=== PATIENT | female | born 1980 | race Caucasian/White ===

== ENCOUNTER 2020-09-17 13:30 | Inpatient (IN) | payer OTHER, SELFPAY ==
[~2020-09-17] VITALS: Ht 157.5 cm; Wt 99.8 kg
[~2020-09-17 13:30] MED LIST: FERR325E14 PO; PREN-385 PO
[2020-09-17] MEDS ORDERED: LABE100T8 PO (14:17)
[2020-09-17] MEDS ORDERED: TERBUTALINE 1 MG/ML VIAL SUBQ SCH (14:20)
--- NOTE | 2020-09-17 14:54 | NUR ---
PATIENT HAS BEEN SCREENED AND CATEGORIZED LOW NUTRITION RISK. PATIENT WILL BE SEEN WITHIN 7 DAYS OF ADMISSION. 09/24/20 GLENN FRANKLIN MBA, RD
[2020-09-17 15:38] VITALS: BP 121/65
[2020-09-17] MEDS ORDERED: BETAMETH ACET/BETAMETH NA PH 30 MG/5 ML VIAL IM ONE (17:05)
[2020-09-17] MEDS: BETAMETH ACET/BETAMETH NA PH 30 MG/5 ML VIAL IM SCH (17:10)
[2020-09-17] MEDS: LABETALOL 100 MG TAB PO SCH (21:04)
[2020-09-17] MEDS: TERBUTALINE 2.5 MG TAB PO SCH (21:05)
[2020-09-18] MEDS: LACTATED RINGERS 1,000 ML IV SCH ×3 (00:24→17:05)
[2020-09-18] MEDS: TERBUTALINE 2.5 MG TAB PO SCH ×4 (03:00→21:01)
[2020-09-18] MEDS: BETAMETH ACET/BETAMETH NA PH 30 MG/5 ML VIAL IM SCH (05:08)
[2020-09-18] MEDS: LABETALOL 100 MG TAB PO SCH ×2 (09:09→21:01)
[2020-09-18 14:41] LABS: ANION GAP 15.1 (8-16); CARBON DIOXIDE 19.7 mmol/L (21-32); CREATININE 0.7 mg/dL (0.6-1.3); POTASSIUM 3.8 mmol/L (3.5-5.1)
[2020-09-18] MEDS ORDERED: metFORMIN 500 MG TAB PO SCH (15:00)
[2020-09-18] MEDS: metFORMIN 500 MG TAB PO SCH (20:12)
[2020-09-19] MEDS: TERBUTALINE 2.5 MG TAB PO SCH ×2 (03:00→09:13)
[2020-09-19] MEDS: metFORMIN 500 MG TAB PO SCH (08:01)
[2020-09-19] MEDS: LABETALOL 100 MG TAB PO SCH (09:13)
== END 2020-09-19 14:15 | disposition home or self-care (01) | DRG 563 ==
LOC: MLD 13:30 → MFCC 16:00
PROVIDERS: ADMIT Obstetrics & Gynecology; ATTEND Obstetrics & Gynecology
DX: O60.03 Preterm labor without delivery, third trimester (principal); O14.03 Mild to moderate pre-eclampsia, third trimester; E66.9 Obesity, unspecified; O24.419 Gestational diabetes mellitus in pregnancy, unspecified control; O99.213 Obesity complicating pregnancy, third trimester; Z3A.36 36 weeks gestation of pregnancy; Z20.822 Contact with and (suspected) exposure to COVID-19
CPT/HCPCS: 36415; 76805; 80048; 81000; 82947; 82948; 83036; J0702; J3105; J7120; U0003